=== PATIENT | female | born 1990 | race Caucasian/White ===

== ENCOUNTER 2017-05-01 18:50 | Emergency (ER) | payer MEDICAID ==
[~2017-05-01] VITALS: Ht 152.4 cm; Wt 53.0 kg
[~2017-05-01 18:50] MED LIST: BIRTH CONTROL; NORC5TAB PO; PENI250T59 PO; PERI0.126 SWISH-SPIT
[2017-05-01 18:55] VITALS: BP 132/82; PULSE 90; RESP 16; TEMP 98.2; O2SAT 100
[2017-05-01] MEDS ORDERED: PENI500T PO (19:54)
[2017-05-01] MEDS ORDERED: IBUP1TAB7 PO (19:54)
--- NOTE | 2017-05-01 19:55 | PD ---
HPI Chief Complaint: Oral / Dental Pain or Problem Time Seen by Provider: 19:28 Travel History International Travel<30 days: No Contact w/Intl Traveler<30days: No Traveled to known affect area: No History of Present Illness HPI 27-year-old female here with right lower dental pain 1 day. She has a decayed and fractured with the site of the pain. She reports mild facial swelling. Pain with eating, drinking, chewing. No difficulty swallowing. Symptom severity is moderate. Unrelieved by [id number] Tylenol and Motrin. PFSH Past Medical History Medical History: Denies Significant Hx Hx Anticoagulant Therapy: No Cancer: No Cardiovascular Problems: No Diabetes: No Diminished Hearing: No Endocrine: No Genitourinary: No Headaches: Yes Immune Disorder: No Musculoskeletal: No Neurologic: Yes Psychiatric: No Reproductive: No Respiratory: No Immunizations Current: No Migraines: Yes Tetanus Vaccination: < 5 Years Influenza Vaccination: No ?: Not LMP: now : 2 Para: 2 Past Surgical History Section: Yes Gynecologic Surgery: Yes (C SECTION) Other Surgery: Yes Social History Alcohol Use: No Tobacco Use: Yes (04/26 PPD) Substance Use: No Allergies-Medications (Allergen,Severity, Reaction): Coded Allergies: No Known Allergies (Unverified , 05/01/17) Reported Meds & Prescriptions Reported Meds & Active Scripts Active Reported [ Control] Review of Systems Except as stated in HPI: all other systems reviewed are Neg General / Constitutional: No: Fever Physical Exam Narrative GENERAL: Alert female. Well-appearing. SKIN: Warm and dry. HEAD: Normocephalic. EYES: No injection or drainage. Mouth: Widespread dental decay. Right lower molars decayed with surrounding gum erythema. NECK: Supple, trachea midline. No JVD or lymphadenopathy. CARDIOVASCULAR: Regular rate and rhythm RESPIRATORY: Breath sounds equal bilaterally. No accessory muscle use. Data Data Last Documented VS Vital Signs Date Time Temp Pulse Resp B/P (MAP) Pulse Ox O2 Delivery O2 Flow Rate FiO2 05/01/17 18:55 98.2 90 16 132/82 (99) 100 MDM Medical Decision Making Medical Screen Exam Complete: Yes Emergency Medical Condition: Yes Differential Diagnosis Dental abscess, dental caries, periodontal disease Narrative Course 27 old female here with right lower dental pain. On exam she is widespread dental decay. She has gum erythema and swelling at the site of the pain. She' ll be treated for minor dental infection Diagnosis Primary Impression: Dentalgia Referrals: Dentist Scripts Ibuprofen (Ibuprofen) 800 Mg Tab 800 MG PO Q6HR Y for PAIN, #40 TAB 0 Refills Prov: Elise Nicholas 05/01/17 Penicillin V Potassium (Penicillin V Potassium) 500 Mg Tab 500 MG PO Q6H for Infection for 7 Days, #28 TAB 0 Refills Prov: Elise Nicholas 05/01/17 Disposition: 01 DISCHARGE HOME Condition: Stable Elise Nicholas May 01, 2017 19:55
== END 2017-05-01 20:00 | disposition home or self-care (01) ==
LOC: PHEFT 18:50
DX: K08.89 Other specified disorders of teeth and supporting structures (principal); F17.210 Nicotine dependence, cigarettes, uncomplicated
CPT/HCPCS: 99284